=== PATIENT | male | born 2000 ===

== ENCOUNTER 2021-07-21 04:10 | Emergency (ER) | payer MEDICAID, OTHER ==
[~2021-07-21] VITALS: Ht 185.4 cm; Wt 170.8 kg
[2021-07-21 04:30] VITALS: BP 133/76
[2021-07-21] MEDS ORDERED: PANTOPRAZOLE 40 MG TAB PO ONE (05:00)
[2021-07-21] MEDS ORDERED: LIDOCAINE VISCOUS 2% 15ML UD MT ONE (05:00)
== END 2021-07-21 05:30 | disposition home or self-care (01) ==
LOC: ER 04:10
DX: R09.89 Other specified symptoms and signs involving the circulatory and respiratory systems (principal); E66.9 Obesity, unspecified; F41.9 Anxiety disorder, unspecified; F32.9 Major depressive disorder, single episode, unspecified; F84.0 Autistic disorder; Z68.42 Body mass index [BMI] 45.0-49.9, adult